=== PATIENT | male | born 1950 | race Caucasian/White ===

== ENCOUNTER 2018-07-06 10:58 | Inpatient (IN) | payer BC ==
[~2018-07-06] VITALS: Ht 175.3 cm; Wt 101.8 kg
[~2018-07-06 10:58] MED LIST: ATOR40TA PO; Amiodarone HCl200 MG PO; Coumadin5 MG PO; Crestor40 MG PO; LISI20 PO; METF500C PO; METO25ER PO; PIOG30 PO; Toprol Xl50 MG PO
[2018-07-06 12:08] LABS: BASOPHILS ABSOLUTE AUTO 0.03 K/mm3 (0.00-0.23); BASOPHILS PERCENT AUTO 0 % (0-2); EOSINOPHILS ABSOLUTE AUTO 0.01 K/mm3 (0.00-0.68); EOSINOPHILS PERCENT AUTO 0 % (0-6); Hematocrit 47.8 % (37.0-53.0); Hemoglobin 16.7 g/dL (13.5-17.5); IMMATURE GRAN ABSOLUTE AUTO 0.03 K/mm3 (0.00-0.10); IMMATURE GRAN PERCENT AUTO 0 % (0-1); LYMPHOCYTES ABSOLUTE AUTO 0.95 K/mm3 (0.84-5.20); LYMPHOCYTES PERCENT AUTO 11 % (21-46); MONOCYTES ABSOLUTE AUTO 0.79 K/mm3 (0.16-1.47); MONOCYTES PERCENT AUTO 9 % (4-13); Mean Corpuscular HGB 34.1 pg (26.0-34.0); Mean Corpuscular HGB Conc 34.9 g/dL (31.5-36.5); Mean Corpuscular Volume 98 fL (80-100); Mean Platelet Volume 9.1 fL (9.1-12.4); NEUTROPHILS ABSOLUTE AUTO 7.08 K/mm3 (1.96-9.15); NEUTROPHILS PERCENT AUTO 80 % (41-73); Platelet Count 341 K/mm3 (150-400); RDW Coefficient Variation 12.4 % (11.7-14.2); RDW Standard Deviation 44.7 fL (35.1-46.3); White Blood Cell Count 8.89 K/mm3 (4.00-11.30)
[2018-07-06 12:31] LABS: Alanine Aminotransfer (ALT/SGP 9 U/L (12-78); Albumin, Blood 3.6 g/dL (3.4-5.0); Albumin/Globulin Ratio 0.9 (0.8-1.8); Alk Phos 113 U/L (50-136); Anion Gap 10 mmol/L (6-16); Aspartate Aminotrans (AST/SGOT 16 U/L (12-37); Bilirubin, Total 1.7 mg/dL (0.1-1.0); Blood Urea Nitrogen 17 mg/dL (8-24); Bun/Creatinine Ratio 19.3 (12.0-20.0); CO2, Blood 25 mmol/L (21-32); Calcium, Blood 8.6 mg/dL (8.5-10.1); Chloride, Blood 102 mmol/L (98-108); Creatinine, Blood 0.88 mg/dL (0.60-1.20); Ethanol (Alcohol), Blood, Med <3 mg/dL; Globulin, Blood 3.9 g/dL (2.2-4.0); Glomerular Filtration Rate >60 (60-); Glucose, Blood 243 mg/dL (70-99); Potassium, Blood 3.6 mmol/L (3.5-5.5); Sodium, Blood 137 mmol/L (136-145); Total Protein, Blood 7.5 g/dL (6.4-8.2)
[2018-07-06 14:03] LABS: Source, Urine Clean Catch
[2018-07-06 14:19] LABS: Appearance, Urine Clear (Clear); Bilirubin, Urine Neg (Neg); Blood, Urine Neg (Neg); Color, Urine Yellow (P-Yellow); Glucose Qualitative, Urine 1+ (Neg); Ketones, Urine Neg (Neg); Leukocyte Esterase, Urine Neg (Neg); Nitrite, Urine Neg (Neg); Protein, Urine 2+ (Neg); Urobilinogen, Urine 2+ (Normal)
[2018-07-06 14:57] LABS: U Amphetamine Screen Not Detected; U Barbituate Screen Not Detected; U Benzodiazapine Screen Not Detected; U Buprenorphine Screen Not Detected; U Cannabinoids Screen Not Detected; U Cocaine Screen Not Detected; U Methadone Screen Not Detected; U Methamphetamine Screen Not Detected; U Opiates Screen Not Detected; U Oxycodone Screen Not Detected; U Phencyclidine Screen Not Detected; U Propoxyphene Screen Not Detected
[2018-07-06 15:11] LABS: Bacteria Rare /hpf; Hyaline Casts 0-2 /lpf (0-2); Red Blood Cells, Urine 0-2 /hpf (0-2); Squamous Epithelial Cells Rare /hpf (Few); White Blood Cells, Urine 0-2 /hpf (0-5)
[2018-07-06 16:11] LABS: CHOL/HDL RATIO 5.1; Cholesterol 226 mg/dL (50-200); HDL Cholesterol 44 mg/dL (>39); LDL/HDL RATIO 3.5; Low Density Lipoprotein Chol 155 mg/dL (0-110); Triglycerides 136 mg/dL (30-160); Very Low Density Lipoprot Chol 27 mg/dL (6-32)
[2018-07-06 16:14] LABS: International Normalized Ratio 1.02; Prothrombin Time Results 10.8 Sec (9.7-11.5)
--- NOTE | 2018-07-06 18:09 | NUR ---
Echocardiogram completed.
[2018-07-07 04:59] LABS: BASOPHILS ABSOLUTE AUTO 0.05 K/mm3 (0.00-0.23); BASOPHILS PERCENT AUTO 1 % (0-2); EOSINOPHILS ABSOLUTE AUTO 0.09 K/mm3 (0.00-0.68); EOSINOPHILS PERCENT AUTO 1 % (0-6); Hematocrit 48.8 % (37.0-53.0); Hemoglobin 16.8 g/dL (13.5-17.5); IMMATURE GRAN ABSOLUTE AUTO 0.03 K/mm3 (0.00-0.10); IMMATURE GRAN PERCENT AUTO 0 % (0-1); LYMPHOCYTES ABSOLUTE AUTO 1.79 K/mm3 (0.84-5.20); LYMPHOCYTES PERCENT AUTO 23 % (21-46); MONOCYTES ABSOLUTE AUTO 0.93 K/mm3 (0.16-1.47); MONOCYTES PERCENT AUTO 12 % (4-13); Mean Corpuscular HGB 34.2 pg (26.0-34.0); Mean Corpuscular HGB Conc 34.4 g/dL (31.5-36.5); Mean Corpuscular Volume 99 fL (80-100); Mean Platelet Volume 9.1 fL (9.1-12.4); NEUTROPHILS ABSOLUTE AUTO 5.06 K/mm3 (1.96-9.15); NEUTROPHILS PERCENT AUTO 64 % (41-73); Platelet Count 314 K/mm3 (150-400); RDW Coefficient Variation 12.3 % (11.7-14.2); RDW Standard Deviation 45.6 fL (35.1-46.3); Red Blood Cell Count 4.91 M/mm3 (4.30-5.90); White Blood Cell Count 7.95 K/mm3 (4.00-11.30)
[2018-07-07 05:14] LABS: Anion Gap 8 mmol/L (6-16); Blood Urea Nitrogen 20 mg/dL (8-24); Bun/Creatinine Ratio 22.3 (12.0-20.0); CO2, Blood 27 mmol/L (21-32); Calcium, Blood 8.5 mg/dL (8.5-10.1); Chloride, Blood 103 mmol/L (98-108); Glomerular Filtration Rate >60 (60-); Glucose, Blood 165 mg/dL (70-99); Potassium, Blood 3.4 mmol/L (3.5-5.5); Sodium, Blood 138 mmol/L (136-145)
--- NOTE | 2018-07-07 06:57 | NUR ---
SHIFT SUMMARY: PT NEW ADMIT AT START OF SHIFT. PT A&O TO SELF, DATE/TIME, SURROUNDINGS, PLACE. PT SAYING OFF THE WALL THINGS, UNABLE TO FOLLOW WITH CONVERSATIONS. PT DRIFTING FORWARD WITH HANDS EXTENDED FROM BODY. STABLE ON FEET. SWALLOWING FINE, NO DROOP, NO SLURRED SPEECH. CALM AND COOPERATIVE c CARE. WILL CONT TO MONITOR AND PROVIDE CARE UNTIL PRESUMED BY ONCOMING RN.
--- NOTE | 2018-07-07 17:46 | NUR ---
SHIFT SUMMARY THE PATIENT PRESENTED WITH VITALS WNL, A&O TO SELF AND SOME SURROUNDINGS. LUNGS WERE CLEAR. THE PATIENT HAS SOME IDEALS OF GRANDGER AND HAS TROUBLE FOLLOWING COMMANDS PASS ABOUT A MINUTE. THE PATIENT HAS HAD REQUESTS FOR CONSULTS PUT AND CALLED IN FOR PYSCH. AND NEURO. THE PATIENT'S FAMILY WAS IN THIS AFTERNOON TO VISIT. THE PATIENT IS RESTING AT THIS TIME, WILL CONTINUE TO MONITOR.
--- NOTE | 2018-07-08 17:20 | NUR ---
PT IS AOX4 WITH A LOT OF CONFUSION. PT HAS RANDOM STORIES AND SEEMS VERY UNCERTAIN ABOUT WHAT IS REAL FAR PERSONAL EXPERIENCES. PT INDEPENDENT IN ROOM AND HAS BEEN COOPERATIVE AND PLEASANT WITH ALL CARE. WILL MONITOR.
--- NOTE | 2018-07-09 05:00 | NUR ---
SHIFT SUMMARY PT HAD AND ACUTE CVA OF LEFT FRONT PARIETAL LOBE. PT IS CONFUSED, AND SUFFERS FROM FLIGHT OF IDEAS THOUGHT PROCESSES. HE IS INDEPENDENT IN THE ROOM AND THE HALLWAY. HE IS ON ROOM AIR, HE IS MONITORED BY PCU WEATHERSEAL TECHNICIAN (A-FIB @ 92 BPM). HE HAS HX OF A-FIB AND DM TYPE 2. I NOTICE IN PT RECORDS THAT HE HAD NOT TAKEN HIS MEDICATIONS IN THE PAST 3 MONTHS. PT, OT, AND SPEECH THERAPY ARE WORKING WITH THIS PT. PT HAS BEEN LIVING IN A MOTEL FOR PAST 1-2 MONTHS. PT IS AWAITING PLACEMENT IN A SNF OR MEMORY CARE FACILITY AT THIS TIME. HIS LAST BM WAS ON 07/05. I REMOVED THE 20 GAUGE IV FROM HIS RT HAND IT LEAKED WHEN I FLUSHED IT. THE 20 GAUGE IN HIS RT FOREARM REMAINS PATENT. ANTICOAGULANT MEDICATIONS ARE BEING HELD AT THIS TIME DUE TO THE POSSIBILITY OF A HEMORRHAGIC CONVERSION OF THE STROKE.
--- NOTE | 2018-07-09 16:24 | NUR ---
SHIFT SUMMARY NO ACUTE CHANGES. PATIENT DENIES PAIN, NAUSEA, AND SHORTNESS OF BREATH. PATIENT ALERT AND ORIENTED WITH OCCASSIONAL CONFUSION THAT IS EASILY REDIRECTED. CARE MANAGEMENT WORKING ON DISCHARGE PLANS AND GUARDIANSHIP FOR PATIENT. CALL LIGHT IN REACH, WILL CONTINUE TO MONITOR.
--- NOTE | 2018-07-10 04:37 | NUR ---
SHIFT SUMMARY GUARDIANSHIP PAPERWORK HAS BEEN COMPLETED FOR THIS PT. FINDING SUITABLE PLACEMENT IS THE MAIN CONCERN FOR THIS PT AT THIS POINT. PT/OT/ST ARE ALL WORKING WITH THIS PT. HE IS PLEASANTLY CONFUSED AND COOPERATIVE WITH CARE. HE DOES NOT HAVE NOTICEABLE RIGHT SIDED EFFECTS FROM HIS STROKE. ALL NEURO ASSESSMENTS WERE NEGATIVE FOR EFFECTS. TELEMETRY MONITORING WAS DC'D ON A PREVIOUS SHIFT. HE HAS AN IV IN THE RT AC THAT IS SALINE LOCKED. HE IS ON ROOM AIR. HE IS INDEPENDENT IN THE ROOM AND IN THE [place]. WE HAVE SHUT THE MAIN DOORS TO THE SCU SO THAT HE WILL NOT WANDER OUT OF THIS [place] DUE TO HIS CONFUSION. HE IS ON LOVENOX TO PREVENT DVT'S. THE LAST BOWEL MOVEMENT WAS DOCUMENTED ON 07/05. HE IS ACHS FOR GLUCOSE CHEMSTICKS.
--- NOTE | 2018-07-10 05:55 | NUR ---
PT STATUS PT REPORTS HE HAD A BOWEL MOVEMENT YESTERDAY. HOWEVER, DUE TO HIS CONFUSED STATUS AND THE FACT THAT NO NURSING STAFF WITNESSED IT - I CANNOT CHART IT IN THE INTAKE & OUTPUT CHARTING.
--- NOTE | 2018-07-10 17:46 | NUR ---
SHIFT SUMMARY NO ACUTE CHANGES. PATIENT UP IN ROOM AND WALKING IN [place]. PLEASANT AND COOPERATIVE. AWAITING PLACEMENT AND GUARDIANSHIP. CALL LIGHT IN REACH, WILL CONTINUE TO MONITOR.
[2018-07-10 22:13] LABS: U Amphetamine Screen Not Detected; U Barbituate Screen Not Detected; U Benzodiazapine Screen Not Detected; U Buprenorphine Screen Not Detected; U Cannabinoids Screen Not Detected; U Cocaine Screen Not Detected; U Methadone Screen Not Detected; U Methamphetamine Screen Not Detected; U Opiates Screen Not Detected; U Oxycodone Screen Not Detected; U Phencyclidine Screen Not Detected; U Propoxyphene Screen Not Detected
--- NOTE | 2018-07-11 05:33 | NUR ---
*SHIFT SUMMARY* PATIENT ALERT AND ORIENTED WITH SOME CONFUSION. FOR EXAMPLE PATIENT WAS ASKING IF HE OWNED HIS ROOM AND HOW IT WAS BEING PAID. PATIENT WAS INFORMED THAT HE WAS IN THE HOSPITAL, AND ASKED IF HE KNEW WHY. PATIENT STATED THAT HE WAS HERE FOR A HEAD INJURY. THIS RN EDUCATED PATIENT ABOUT CURRENT ILLNESS. PATIENT THEN SLEPT THE REST OF THE NIGHT. NO NEW CHANGES IN ACUTE STATUS. PT ABLE TO MOVE ALL FOUR EXTREMITIES, SPEECH INTACT. CALL LIGHT WITHIN REACH, BED LOWERED AND LOCKED.
--- NOTE | 2018-07-11 18:25 | NUR ---
SHIFT SUMMARY PATIENT IS MANIC DAY SHIFT 2/3. HE HAS WALKED THE HALLS FREQUENTLY, UP AL STRONG AND STEADY ON FEET. HE IS VERY HAPPY, PLEASANT AND TALKATIVE. PT STATED HE HAS A PLAN FOR D/C INVOLING DAUGHTER, GRANDAUGHTER AND OTHER FAMILY MEMBERS TO BE CAREGIVERS FOR HIM IN A UNDETERMINED RENTAL HOME. PATIENT A&O WITH SOME CONFUSION ABOUT WHERE HE IS AND WHAT THE DETAILS OF ADMISSION ARE. HE'S FORGETFUL AND I BELEIVE HE IS MORE CONFUSED THAN HE LETS ON-HE'S VERY GOOD AT FAKING ORIENTATION D/T HOW TALKATIVE HE IS
--- NOTE | 2018-07-12 05:44 | NUR ---
*SHIFT SUMMARY* PATIENT IS ALERT AND ORIENTED TO SELF. PATIENT IS CONFUSED AT TIMES TO WHERE HE IS AND WHY HE IS HERE. EASILY REORIENTED. PATIENT IS COOPERATIVE AND PLEASANT. IV IN RIGHT AC THAT IS SALINE LOCKED. PREVIOUS NOTES STATE THAT CASE MANAGEMENT IS WORKING TO HELP TO FIND PLACEMENT FOR PATIENT. PATIENT AMBULATES WELL WITH STEADY GAIT. PATIENT HAS BRP. CALL LIGHT WITHIN REACH, BED LOWERED AND LOCKED. NO NEW CHANGES TO ACUTE STATUS.
--- NOTE | 2018-07-12 16:40 | NUR ---
PATIENT HAS CONTINUED TO NEED RESTRAINTS. HE HAS BOUTS OF AGITATION THROUGHOUT THE SHIFT. HALDOL GIVEN THIS AFTERNOON PATIENT WAS TOSSING LEGS OFF THE BED AND TRYING TO PULL ON HIS IV LINES. HE REFUSED HIS BREAKFAST AND ONLY ATE 50% OF HIS LUNCH. NO OTHER ISSUES THIS SHIFT.
--- NOTE | 2018-07-12 16:57 | NUR ---
PATIENT HAS HAD NO CHANGES THIS SHIFT. HE HAS MOMENTS OF CONFUSSION BUT IS REDIRECTABLE . HE HAS BEEN UP WALKING THE HALLS AND HAS HAD NO COMPLAINTS.
--- NOTE | 2018-07-13 06:23 | NUR ---
*SHIFT SUMMARY* PATIENT IS ALERT AND CONFUSED. PATIENT STATES THAT HE HAS A PROBLEM WITH HIS MEMORY AND IS GOING TO HAVE A PROCEDURE TO FIX IT. PATIENT IS COOPERATIVE AND GOES TO BATHROOM INDEPENDENTLY IN ROOM. PATIENT USES THE CALL LIGHT APPROPRIATELY. VITAL SIGNS ARE WNL. NO NEW CHANGES TO ACUTE STATUS. CALL LIGHT IN REACH, BED LOWERED NAD LOCKED.
--- NOTE | 2018-07-13 16:20 | NUR ---
NO CHANGES THIS SHIFT. PATIENT OFTEN CONFUSED BUT IS REDIRECTABLE. PLEASANT AND COOPERATIVE WITH CARES.
--- NOTE | 2018-07-14 01:04 | NUR ---
68 YEAR OLD [place] VET WHO HAD LT SIDED CVA HAD CHRONIC AFIB AND HAD NOT BEEN TAKING HIS RX FOR UNKNOWN REASON CONTINUES PLEASANT WITH ABILITY TO AMBULATE UNASSISTED WITH STEADY GAIT. HE HAS SOME MEMORY DEFICITS BUT IS ABLE TO ASK FOR HELP. HE HAS AN ADULT SON ANNE WHO LIVES IN [place] AND PT SAYS SON WANTS TO HAVE HIM LIVE WITH HIM AND ASSUME GUARDIANSHIP. NO FAMILY SEEN TONIGHT. BLOOD GLUCOSE CHECKS ACHS NOT REQUIRING SLIDING SCALE INSULIN ON METFORMIN. HE HAS MINIMAL DEFICITS FROM CVA, HE SAYS HE HAS SOME RT HAND DEFICIT BUT MINIMAL NOTED. ON ROOM AIR WITH GOOD TOLERANCE OF DIET AND ACTIVITY. ON XARALTO WITH NO S/SX OF BLEEDING. PT SAYS HE IS SUPPOSED TO GET SOCIAL SECURITY AND [employer]. DISCHARGE PLANNING CONTINUES. PT DID STATE HE DID DRINK SOME BEERS PRIOR TO HAVING CVA AND STOPPING MEDICATIONS TO TREAT DIABETES AND AFIB. VSS. NO AGRESSION. DOES WANDER REDIRECTS EASILY.
--- NOTE | 2018-07-14 05:58 | NUR ---
PT CONTINUES QUIET AND COOPERATIVE. SLEPT WELL. SPEECH CLEAR AND GAIT STEADY. PT HOPING TO DC SOON SAYS HIS SON IS WILLING TO HAVE HIM AT HIS [facility]. DISCHARGE PLANNING CONTINUES HAS MEDICAL CLEARANCE WHEN PLACEMENT FOUND. GUARDIANSHIP LETTER IN CHART.
--- NOTE | 2018-07-14 18:27 | NUR ---
SUMMARY PT SITTING UP IN HIS ROOM VISITING WITH FAMILY, PT IS PLEASANT AND COOPERATIVE WITH CARE, IS INDEPENDENT IN THE ROOM, IS VERY FORGETFUL AND OFTEN CANNOT ANSWER QUESTIONS ACCURATELY, CARE MANAGEMENT IS WORKING ON A DISCHARGE PLAN, VSS, NO ACUTE CHANGES, WILL CONT TO MONITOR
--- NOTE | 2018-07-15 05:55 | NUR ---
SHIFT SUMMARY PT SLEPT WELL T/O NIGHT. AOX3 & FORGETFUL @TIMES, ALSO TENDS TO GET OFF TOPIC WHEN YOU ASK HIM A QUESTION. PT DENIES SOB OR N/V. REPORTED TOOTH PAIN AROUND 0030 LAST NIGHT & WAS MEDICATED 1X W/TYLENOL PER ORDERS, DENIES FURTHER TOOTH DISCOMFORT THIS AM. PT INDEPENDENT IN ROOM, PLEASANT & COOPERATIVE W/CARE. CALL LIGHT IN REACH & WILL CONT. TO MONITOR UNTIL DAY SHIFT RN ASSUMES CARE.
[2018-07-15] MEDS ORDERED: ACET325 PO (12:25)
[2018-07-15] MEDS ORDERED: XARELTO20 MG PO (12:27)
[2018-07-15] MEDS ORDERED: Mag-Al Liquid30 ML PO (12:33)
--- NOTE | 2018-07-15 16:56 | NUR ---
SUMMARY/DISCHARGE PT DISCHARGED HOME WITH FAMILY, DISCHARGE INSTRUCTIONS GIVEN TO PT AND FAMILY, THEY VERBALIZED UNDERSTANDING OF MEDICATIONS AND FOLLOW UP, PT DECLINED A WHEELCHAIR AND WAS ABLE TO AMBULATE SAFELY WITH FAMILY
== END 2018-07-15 16:51 | disposition home or self-care (01) | DRG 66 ==
LOC: ER 10:58 → MEDS 10:59 → ENPENDDIS 07-15 11:44 → MEDS 07-15 16:51
PROVIDERS: Emergency Medicine; ADMIT Family Medicine
DX: I63.9 Cerebral infarction, unspecified (principal); R47.01 Aphasia; I48.2 Chronic atrial fibrillation; E11.9 Type 2 diabetes mellitus without complications; I10 Essential (primary) hypertension; E78.5 Hyperlipidemia, unspecified; F03.90 Unspecified dementia, unspecified severity, without behavioral disturbance, psychotic disturbance, mood disturbance, and anxiety; E87.6 Hypokalemia; F17.200 Nicotine dependence, unspecified, uncomplicated; Z88.0 Allergy status to penicillin; Z79.01 Long term (current) use of anticoagulants; Z79.84 Long term (current) use of oral hypoglycemic drugs; Z79.02 Long term (current) use of antithrombotics/antiplatelets; Z79.82 Long term (current) use of aspirin; Z79.899 Other long term (current) drug therapy
CPT/HCPCS: 36415; 70450; 70496; 70498; 80048; 80053; 80061; 81001; 82947; 83036; 83721; 85025; 85610; 85730; 92507; 92523; 93005; 93010; 93306; 93880; 96365; 96366; 96372; 97161; 97166; 97535; 99285-25; G0378; G0480; G0515; J1650; J1815; Q9967

== ENCOUNTER → 2018-08-24 | Outpatient (CLI) | payer BC ==
[~2018-08-24] MED LIST changes: +ACET325 PO; +Mag-Al Liquid30 ML PO; +XARELTO20 MG PO
[2018-08-24 13:44] LABS: International Normalized Ratio 0.97; Prothrombin Time Results 10.3 Sec (9.7-11.5)
== END | disposition home or self-care (01) ==
LOC: LAB SHORT 11:10 → LAB EV 11:10
PROVIDERS: Family Medicine
DX: I48.0 Paroxysmal atrial fibrillation (principal)
CPT/HCPCS: 85610; 85730

== ENCOUNTER 2019-07-31 14:22 | Inpatient (IN) | payer MEDICARE, BC ==
[~2019-07-31] VITALS: Ht 165.1 cm; Wt 90.0 kg
[~2019-07-31 14:22] MED LIST changes: -ATOR40TA PO; -LISI20 PO; -METF500C PO; -XARELTO20 MG PO
[2019-07-31 15:57] LABS: BASOPHILS ABSOLUTE AUTO 0.02 K/mm3 (0.00-0.23); BASOPHILS PERCENT AUTO 0 % (0-2); EOSINOPHILS ABSOLUTE AUTO 0.01 K/mm3 (0.00-0.68); EOSINOPHILS PERCENT AUTO 0 % (0-6); Hematocrit 41.2 % (37.0-53.0); Hemoglobin 15.4 g/dL (13.5-17.5); IMMATURE GRAN ABSOLUTE AUTO 0.04 K/mm3 (0.00-0.10); IMMATURE GRAN PERCENT AUTO 0 % (0-1); LYMPHOCYTES ABSOLUTE AUTO 0.52 K/mm3 (0.84-5.20); LYMPHOCYTES PERCENT AUTO 4 % (21-46); MONOCYTES ABSOLUTE AUTO 0.63 K/mm3 (0.16-1.47); MONOCYTES PERCENT AUTO 4 % (4-13); Mean Corpuscular HGB 32.2 pg (26.0-34.0); Mean Corpuscular HGB Conc 37.4 g/dL (31.5-36.5); Mean Corpuscular Volume 86 fL (80-100); Mean Platelet Volume 9.2 fL (9.1-12.4); NEUTROPHILS ABSOLUTE AUTO 13.25 K/mm3 (1.96-9.15); NEUTROPHILS PERCENT AUTO 92 % (41-73); Platelet Count 257 K/mm3 (150-400); RDW Coefficient Variation 11.1 % (11.7-14.2); RDW Standard Deviation 35.3 fL (35.1-46.3); Red Blood Cell Count 4.78 M/mm3 (4.30-5.90); White Blood Cell Count 14.47 K/mm3 (4.00-11.30)
[2019-07-31 16:10] LABS: International Normalized Ratio 1.14; Prothrombin Time Results 12.1 Sec (9.7-11.5)
[2019-07-31 16:22] LABS: Alanine Aminotransfer (ALT/SGP 14 U/L (12-78); Albumin, Blood 3.6 g/dL (3.4-5.0); Albumin/Globulin Ratio 1.1 (0.8-1.8); Alk Phos 87 U/L (50-136); Anion Gap 10 mmol/L (6-16); Aspartate Aminotrans (AST/SGOT 24 U/L (12-37); Bilirubin, Total 2.1 mg/dL (0.1-1.0); Blood Urea Nitrogen 11 mg/dL (8-24); Bun/Creatinine Ratio 13.9 (12.0-20.0); CO2, Blood 26 mmol/L (21-32); Calcium, Blood 8.7 mg/dL (8.5-10.1); Chloride, Blood 80 mmol/L (98-108); Creatinine, Blood 0.79 mg/dL (0.60-1.20); Globulin, Blood 3.2 g/dL (2.2-4.0); Glomerular Filtration Rate >60 (60-); Glucose, Blood 209 mg/dL (70-99); Potassium, Blood 3.8 mmol/L (3.5-5.5); Sodium, Blood 116 mmol/L (136-145); Total Protein, Blood 6.8 g/dL (6.4-8.2)
[2019-07-31 16:48] LABS: Source, Urine Clean Catch
[2019-07-31 16:50] LABS: Magnesium, Blood 1.4 mg/dL (1.6-2.4); Phosphorus, Blood 3.2 mg/dL (2.5-4.9)
[2019-07-31 16:53] LABS: Bilirubin, Urine Neg (Neg); Blood, Urine Neg (Neg); Glucose Qualitative, Urine 3+ (Neg); Ketones, Urine 4+ (Neg); Leukocyte Esterase, Urine Neg (Neg); Nitrite, Urine Neg (Neg); Protein, Urine 1+ (Neg); Urobilinogen, Urine NORM (Normal)
[2019-07-31 16:59] LABS: Appearance, Urine Clear (Clear); Color, Urine Yellow (P-Yellow)
[2019-07-31] MEDS ORDERED: LISI20 PO (17:11)
[2019-07-31] MEDS ORDERED: ATOR40TA PO (17:11)
[2019-07-31] MEDS ORDERED: XARELTO20 MG PO (17:12)
[2019-07-31] MEDS ORDERED: Metformin HCl1000 MG PO (17:12)
[2019-07-31] MEDS ORDERED: MIRT15 PO (17:13)
[2019-07-31] MEDS ORDERED: LEVSOD50 PO (17:13)
[2019-07-31] MEDS ORDERED: TOPROL XL25 MG PO (17:14)
[2019-07-31] MEDS ORDERED: CHLO25B PO (17:15)
[2019-07-31] MEDS ORDERED: MELA3 PO (17:28)
[2019-07-31] MEDS ORDERED: MAGNESIUM OXID500 MG PO (17:29)
[2019-07-31] MEDS ORDERED: Geri-Hydrolac140 GM TOP (17:54)
--- NOTE | 2019-07-31 20:54 | NUR ---
ASSUMED CARE APPROXIMATELY 1999; PT VIA STRETCHER FROM ER; SLIDER SHEET USED TO TRANSFER PT TO BED; ALERT BUT UNABLE TO ANSWER QUESTIONS; NODS HEAD YES, BUT NOT NECESSARILY ACCURATE; ALWAYS ANSWERS YES; PT FACE RED AND WARM TO TOUCH; TEMP OF 99.3; CURRENTLY CALM WATCHING TV; VSS; AFIB HR 77 PER GENERAL LEDGER BOOKKEEPER; O2 SATS >95 ON RA; LUNG SOUNDS CLEAR; DRIED BLOOD ON LIPS AND PT HAS HICCUPS; BLE WARM, MOTTLED, ANSWERS YES TO PAIN; CALL LIGHT IN REACH; BED IN LOWEST POSITION.
[2019-08-01 00:40] LABS: BASOPHILS ABSOLUTE AUTO 0.01 K/mm3 (0.00-0.23); BASOPHILS PERCENT AUTO 0 % (0-2); EOSINOPHILS ABSOLUTE AUTO 0.02 K/mm3 (0.00-0.68); EOSINOPHILS PERCENT AUTO 0 % (0-6); Hematocrit 38.7 % (37.0-53.0); Hemoglobin 14.4 g/dL (13.5-17.5); IMMATURE GRAN ABSOLUTE AUTO 0.04 K/mm3 (0.00-0.10); IMMATURE GRAN PERCENT AUTO 0 % (0-1); LYMPHOCYTES PERCENT AUTO 6 % (21-46); MONOCYTES ABSOLUTE AUTO 0.77 K/mm3 (0.16-1.47); MONOCYTES PERCENT AUTO 7 % (4-13); Mean Corpuscular HGB 32.6 pg (26.0-34.0); Mean Corpuscular HGB Conc 37.2 g/dL (31.5-36.5); Mean Corpuscular Volume 88 fL (80-100); NEUTROPHILS ABSOLUTE AUTO 9.33 K/mm3 (1.96-9.15); NEUTROPHILS PERCENT AUTO 86 % (41-73); RDW Coefficient Variation 11.3 % (11.7-14.2); RDW Standard Deviation 36.4 fL (35.1-46.3); Red Blood Cell Count 4.42 M/mm3 (4.30-5.90); White Blood Cell Count 10.87 K/mm3 (4.00-11.30)
[2019-08-01 00:41] LABS: Mean Platelet Volume 9.4 fL (9.1-12.4); Platelet Count 201 K/mm3 (150-400)
[2019-08-01 00:59] LABS: Magnesium, Blood 1.7 mg/dL (1.6-2.4); Troponin I <0.015 ng/mL (0.000-0.040)
[2019-08-01 01:05] LABS: Anion Gap 7 mmol/L (6-16); Blood Urea Nitrogen 9 mg/dL (8-24); Bun/Creatinine Ratio 11.1 (12.0-20.0); CO2, Blood 25 mmol/L (21-32); Calcium, Blood 9.3 mg/dL (8.5-10.1); Chloride, Blood 95 mmol/L (98-108); Creatinine, Blood 0.81 mg/dL (0.60-1.20); Glomerular Filtration Rate >60 (60-); Glucose, Blood 149 mg/dL (70-99); Potassium, Blood 4.7 mmol/L (3.5-5.5); Sodium, Blood 127 mmol/L (136-145)
[2019-08-01 02:00] LABS: Adenovirus Not Detected (NOT DETECT); Bordetella pertussis Not Detected (NOT DETECT); Chlamydophila pneumoniae Not Detected (NOT DETECT); Coronavirus 229E Not Detected (NOT DETECT); Coronavirus HKU1 Not Detected (NOT DETECT); Coronavirus NL63 Not Detected (NOT DETECT); Coronavirus OC43 Not Detected (NOT DETECT); Human Metapneumovirus Not Detected (NOT DETECT); Human Rhinovirus/Enterovirus Not Detected (NOT DETECT); Influenza A Not Detected (NOT DETECT); Influenza A/2009-H1 Not Detected (NOT DETECT); Influenza A/H1 Not Detected (NOT DETECT); Influenza A/H3 Not Detected (NOT DETECT); Influenza B Not Detected (NOT DETECT); Mycoplasma pneumoniae Not Detected (NOT DETECT); Parainfluenza Virus 1 Not Detected (NOT DETECT); Parainfluenza Virus 2 Not Detected (NOT DETECT); Parainfluenza Virus 3 Not Detected (NOT DETECT); Parainfluenza Virus 4 Not Detected (NOT DETECT); Respiratory Syncytial Virus Not Detected (NOT DETECT)
--- NOTE | 2019-08-01 05:56 | NUR ---
UPDATE LAB DRAW SODIUM OF 127; NOTIFIED OF INCREASE; ORDER GIVEN FOR STAT BLOOD DRAW TO CONFIRM ACCURACY; IF SODIUM OVER 120 STOP FLUIDS; ORDER ENTERED AND LAB NOTIFIED
--- NOTE | 2019-08-01 07:43 | NUR ---
SHIFT SUMMARY PT ALERT; IMPULSIVE AND UNABLE TO FOLLOW DIRECTION; PT PULLS AT HIS IV'S; IV'S CURRENTLY COVERED IN COBAN FOR CONCEALMENT; VSS; L FOOT COOL TO TOUCH; VERY FAINT PEDAL PULSE; O2 SATS >95 ON RA; LUNG SOUNDS CLEAR; PT CURRENTLY SLEEPING IN POSITION; CALL LIGHT IN REACH; BED IN LOWEST POSITION; BED ALARM ON; REPORT GIVEN TO DAY SHIFT RN
--- NOTE | 2019-08-01 09:30 | NUR ---
CAREGIVER-RENATA PT PRIVATE CAREGIVER HERE. SHE IS PT POA WELL. RENATA REPORTS THAT PT PSYCHE AND BEHAVIOR HAS BEEN DECLINING FOR ABOUT 1 MONTH. [facility] JUNE, SHOW A NORMAL SODIUM LEVEL. RENATA DESCRIBES "MANIC" EPISODES WHERE PT WOULD ROCK, LAUGH HYSTERICALLY THEN CRY. SHE HAS BEEN IN CONTACT WITH [facility] FREQUENTLY. CURRENTLY TRYING TO ARRANGE FOR CARE OF THE LEFT LE DVT. [facility] WANT[facility] SURGICAL INTERVENTION OF SOME KIND. RENATA IS UNSURE WHAT IT IS. CONTINUE POT.
--- NOTE | 2019-08-01 12:16 | NUR ---
LIVING SITUATION PT SON CAME IN TO SEE DAD. SON RELATES THAT DAD HAS BEEN HAVING MEMORY ISSUES FOR YEARS. PRIOR TO HIS CVA. PT CAREGIVER RENATA LIVES WITH PT IN A SINGLE WIDE IN [place]. SON LIVES IN [place]. THEY HAVE AN ALARM ON THE [place] SO THEY CAN HEAR IF HE LEAVES THE HOUSE3. HE HAS WANDERED AWAY IN THE PAST.PT HAS HAD A LARGE WEIGHT LOSS SINCE HIS CVA. PRIOR TO CVA HE ATE LARGE AMOUNTS OF SODA AND CHIPS. SON RELATES THAT HE WAS AT LEAST 300+ POUNDS. CONTINUE POT.
[2019-08-01 12:36] LABS: Hematocrit 41.5 % (37.0-53.0); Hemoglobin 14.8 g/dL (13.5-17.5)
[2019-08-01 12:46] LABS: Anion Gap 7 mmol/L (6-16); Blood Urea Nitrogen 10 mg/dL (8-24); CO2, Blood 25 mmol/L (21-32); Calcium, Blood 9.2 mg/dL (8.5-10.1); Chloride, Blood 98 mmol/L (98-108); Creatinine, Blood 0.91 mg/dL (0.60-1.20); Glomerular Filtration Rate >60 (60-); Glucose, Blood 157 mg/dL (70-99); Potassium, Blood 3.8 mmol/L (3.5-5.5); Sodium, Blood 130 mmol/L (136-145)
--- NOTE | 2019-08-01 14:51 | NUR ---
transfer to 347. Report called to Rusty CHAVIRA. Pt transfered up to 347 via w/c accompanied by coding manager. Pt alert and cooperative with care. Continue pot.
--- NOTE | 2019-08-01 17:38 | NUR ---
SUMMARY PCU TRANSFER THIS AFTERNOON. PT IS A/O X2-3, ANSWER BASIC QUESTIONS APPROP. HE GETS UP W/O ASSIST OR NOT USING CALL LIGHT. REQUIRE REDIRECT & REVIEW FALL PRECAUTIONS, USING ALARMS FOR NOW. HE IS PLEASANT/COOPERATIVE OTHERWISE. STATE NO PAIN/DISCOMFORT. UP IN CHAIR MOST OF AFTERNOON. VSS.
--- NOTE | 2019-08-01 18:00 | NUR ---
Patient gave this nursing surgical services director permission to care for him on 08/02/2019
--- NOTE | 2019-08-01 19:30 | NUR ---
DR AUSTIN IN TO SEE PT, STOP IV PROTONIX, CHANGE TO ORAL. STATE NO INPT EGD REQUIRED, PT WILL F/U w HIM 2WKS AFTER D/C.
--- NOTE | 2019-08-01 20:44 | NUR ---
08/01/191999 PT ASKING FOR DRINKS. WAS GIVEN A GLASS OF JUICE AND THEN WAS SEEN ADDING WATER FROM SINK INTO GLASS. INFORMED PT OF FLUID RESTRICTION AND IMPORTANCE OF NOT DRINKING MORE THAN WHAT WAS GIVEN BY STAFF. PT STATES OKAY.
--- NOTE | 2019-08-02 01:50 | NUR ---
08/02/19 0135 PT CAME OUT OF ROOM AND WAS ATTEMPTING TO GO INTO ANOTHER PT'S ROOM "TO GET MY SHOES!" RE-ORIENTED TO HIS ROOM AND ESCORTED TO HIS ROOM. PT SHOWN HIS SHOES AND HE SET THEM BY BED. ENCOURAGED HIM TO GO TO SLEEP. PT BACK IN BED.
--- NOTE | 2019-08-02 05:23 | NUR ---
08/02/19 0520 WANDERS OUT INTO THE [place] SEVERAL TIMES LOOKING FOR SHOES,WALLET, ETC. HE IS DIRECTABLE. STEADY ON FEET. DENIES ANY PAIN OR S/S. VITALS STABLE. PT ON CONTINUOUS VIDEO MONITORING. VOIDING QS.
[2019-08-02 05:58] LABS: Anion Gap 8 mmol/L (6-16); Blood Urea Nitrogen 16 mg/dL (8-24); Bun/Creatinine Ratio 15.1 (12.0-20.0); CO2, Blood 27 mmol/L (21-32); Calcium, Blood 8.8 mg/dL (8.5-10.1); Chloride, Blood 100 mmol/L (98-108); Creatinine, Blood 1.06 mg/dL (0.60-1.20); Glomerular Filtration Rate >60 (60-); Glucose, Blood 139 mg/dL (70-99); Potassium, Blood 3.5 mmol/L (3.5-5.5); Sodium, Blood 135 mmol/L (136-145)
[2019-08-02] MEDS ORDERED: PANT20 PO (11:06)
--- NOTE | 2019-08-02 11:18 | NUR ---
DISCHARGE NA+ LEVEL WNL @ 135, PT STATE FEELING IMPROVED. DR COKER STATE IN TO SEE HIM THIS AM, STATE OK FOR D/C HOME w CAREGIVER. IV D/C INTACT, PT ASSISTED TO SHOWER & DRESS. CAREGIVER ATTILA NOTIFIED, WILL BE IN FOR TRANSPORTATION HOME. DR AUSTIN OFFICE NOTIFIED, WILL CALL PT FOR GI F/U. SCRIPTS FAXED TO [facility]/REQUEST. AUTO BODY REPAIR ESTIMATOR WILL ARRANGE PCP F[facility] w [facility].
--- NOTE | 2019-08-02 12:24 | NUR ---
MEDICATIONS CLARIFIED W DR COKER, PT WILL STOP HYGROTON, RESTART XARELTO IN 3 DAYS IF NO FURTHER SUSPICION OF BLOOD IN EMESIS. REVIEWED w CAREGIVER @ TIME OF D/C. W/C ESCORT PROVIDED. PT/CAREGIVER PLEASANT/APPRECIATIVE.
== END 2019-08-02 12:18 | disposition home or self-care (01) | DRG 640 ==
LOC: ER 14:22 → ERHOLD 17:45 → PCU 17:45 → MEDS 08-01 14:53 → ENPENDDIS 08-02 09:07 → MEDS 08-02 12:18
PROVIDERS: Hospitalist; Physician Assistant; Student in an Organized Health Care Education/Training Program; ADMIT Family Medicine
DX: E87.1 Hypo-osmolality and hyponatremia (principal); G92 Toxic encephalopathy; K92.0 Hematemesis; R47.01 Aphasia; I69.351 Hemiplegia and hemiparesis following cerebral infarction affecting right dominant side; E11.59 Type 2 diabetes mellitus with other circulatory complications; E78.00 Pure hypercholesterolemia, unspecified; I48.91 Unspecified atrial fibrillation; W19.XXXA Unspecified fall, initial encounter; Z79.01 Long term (current) use of anticoagulants; I10 Essential (primary) hypertension; I69.328 Other speech and language deficits following cerebral infarction; Z86.718 Personal history of other venous thrombosis and embolism; E78.5 Hyperlipidemia, unspecified
CPT/HCPCS: 0099U; 36415; 51701; 70450; 71045; 74176; 80048; 80053; 82330; 82947; 83036; 83605; 83735; 83930; 83935; 84100; 84145; 84295; 84443; 84484; 85014; 85018; 85025; 85610; 86850; 86900; 86901; 93005; 93010; 96361; 96374; 99285-25; A9270-GY; C9113; J1956; J3475; J3480; J7030

== ENCOUNTER 2020-10-12 10:23 | Emergency (ER) | payer OTHER, BC ==
[~2020-10-12] VITALS: Ht 180.3 cm; Wt 81.7 kg
[~2020-10-12 10:23] MED LIST changes: +ATOR40TA PO; +CHLO25B PO; +Geri-Hydrolac140 GM TOP; +LEVSOD50 PO; +LISI20 PO; +MAGNESIUM OXID500 MG PO; +MELA3 PO; +MIRT15 PO; +Metformin HCl1000 MG PO; +PANT20 PO; +TOPROL XL25 MG PO; +XARELTO20 MG PO
[2020-10-12 11:25] LABS: BASOPHILS ABSOLUTE AUTO 0.06 K/mm3 (0.00-0.23); BASOPHILS PERCENT AUTO 1 % (0-2); EOSINOPHILS ABSOLUTE AUTO 0.08 K/mm3 (0.00-0.68); EOSINOPHILS PERCENT AUTO 1 % (0-6); Hematocrit 47.7 % (37.0-53.0); Hemoglobin 16.7 g/dL (13.5-17.5); IMMATURE GRAN ABSOLUTE AUTO 0.03 K/mm3 (0.00-0.10); IMMATURE GRAN PERCENT AUTO 0 % (0-1); LYMPHOCYTES ABSOLUTE AUTO 1.49 K/mm3 (0.84-5.20); LYMPHOCYTES PERCENT AUTO 19 % (21-46); MONOCYTES ABSOLUTE AUTO 0.58 K/mm3 (0.16-1.47); MONOCYTES PERCENT AUTO 7 % (4-13); Mean Corpuscular HGB 33.3 pg (26.0-34.0); Mean Corpuscular Volume 95 fL (80-100); Mean Platelet Volume 9.4 fL (9.1-12.4); NEUTROPHILS PERCENT AUTO 72 % (41-73); Platelet Count 325 K/mm3 (150-400); RDW Coefficient Variation 11.9 % (11.7-14.2); RDW Standard Deviation 41.3 fL (35.1-46.3); Red Blood Cell Count 5.01 M/mm3 (4.30-5.90); White Blood Cell Count 8.04 K/mm3 (4.00-11.30)
[2020-10-12 11:37] LABS: Alanine Aminotransfer (ALT/SGP 14 U/L (12-78); Albumin, Blood 3.9 g/dL (3.4-5.0); Albumin/Globulin Ratio 1.1 (0.8-1.8); Alk Phos 91 U/L (50-136); Anion Gap 7 mmol/L (6-16); Aspartate Aminotrans (AST/SGOT 16 U/L (12-37); Blood Urea Nitrogen 27 mg/dL (8-24); Bun/Creatinine Ratio 26.5 (12.0-20.0); CO2, Blood 24 mmol/L (21-32); Chloride, Blood 104 mmol/L (98-108); Creatinine, Blood 1.02 mg/dL (0.60-1.20); Ethanol (Alcohol), Blood, Med <3 mg/dL; Globulin, Blood 3.6 g/dL (2.2-4.0); Glomerular Filtration Rate >60 (60-); Glucose, Blood 143 mg/dL (70-99); Potassium, Blood 4.3 mmol/L (3.5-5.5); Sodium, Blood 135 mmol/L (136-145); Total Protein, Blood 7.5 g/dL (6.4-8.2)
[2020-10-12 11:40] LABS: U Amphetamine Screen Not Detected; U Barbituate Screen Not Detected; U Benzodiazapine Screen Not Detected; U Buprenorphine Screen Not Detected; U Cannabinoids Screen Not Detected; U Cocaine Screen Not Detected; U Methadone Screen Not Detected; U Methamphetamine Screen Not Detected; U Opiates Screen Not Detected; U Oxycodone Screen Not Detected; U Phencyclidine Screen Not Detected; U Propoxyphene Screen Not Detected
[2020-10-12 12:46] LABS: Source, Urine Voided
[2020-10-12 12:49] LABS: Appearance, Urine Clear (Clear); Bilirubin, Urine Neg (Neg); Blood, Urine Neg (Neg); Color, Urine Yellow (P-Yellow); Glucose Qualitative, Urine Neg (Neg); Ketones, Urine 2+ (Neg); Leukocyte Esterase, Urine Neg (Neg); Nitrite, Urine Neg (Neg); Protein, Urine Neg (Neg); Specific Gravity, Urine 1.015 (1.003-1.022); Urobilinogen, Urine NORM (Normal)
[2020-10-12] MEDS ORDERED: QUET25 PO (13:13)
== END 2020-10-12 15:00 | disposition home or self-care (01) ==
LOC: ER 10:23
PROVIDERS: Emergency Medicine
DX: F03.91 Unspecified dementia, unspecified severity, with behavioral disturbance (principal); R45.6 Violent behavior; I48.91 Unspecified atrial fibrillation; E11.9 Type 2 diabetes mellitus without complications; Z88.0 Allergy status to penicillin; Z79.899 Other long term (current) drug therapy
CPT/HCPCS: 36415; 71045; 80053; 81003; 85025; 93005; 93010; 99285-25; A9270; G0480